=== PATIENT | female | born 1970 | race Caucasian/White ===

== ENCOUNTER 2020-08-30 19:27 | Day surgery (SDC) | payer BC, OTHER ==
[~2020-08-30] VITALS: Ht 162.6 cm; Wt 128.5 kg
[2020-08-30] MEDS ORDERED: morphine INJ 10 MG/ML 1ML (SYR OR VIAL) ONE (19:40)
[2020-08-30] MEDS ORDERED: ETOMIDATE IV SOLN 20 MG/10 ML VIAL ONE (19:41)
[2020-08-30] MEDS ORDERED: morphine INJ 4 MG/ML 1 ML (VIAL/SYRINGE) IVP ONE (19:45)
[2020-08-30] MEDS ORDERED: ONDANSETRON 4 MG/2 ML (SDV) Z0FRAN IVP ONE (19:45)
[2020-08-30] MEDS ORDERED: NS IV 1000 ML 1,000 ML IV SCH (19:45)
--- NOTE | 2020-08-30 20:28 | ED Lower Extremity ---
General Chief Complaint: Conscious Sedation Stated Complaint: L ANKLE PAIN Source: patient Exam Limitations: no limitations History of Present Illness Date Seen by Provider: Aug 30, 2020 Time Seen by Provider: 19:25 Initial Comments Patient is a 50-year-old female who presents by EMS today with a chief complaint of left ankle pain after a fall. Patient states that she was feeding her chickens coming down a ramp from one of her storage shed's and fell on the left leg. Patient states she immediately had pain and heard a cracking sound. She was not able to get herself up to her feet. Patient states that her left hip is a little sore. Patient denies any other complaints of injury. She did not hit her head she did not have a loss of consciousness. No recent illnesses such as fevers, chills, cough, congestion. She does have a history of some hypertension. She takes medication for this. Last meal was at 430 this evening. All other review of systems reviewed and negative except as stated above. Onset: just prior to arrival Severity: severe Pain/Injury Location: left ankle Method of Injury: fell Modifying Factors: Improves With Immobilization; Worse With Movement; Improves With Pain Medication Allergies and Home Medications Allergies Coded Allergies: latex (Verified Allergy, Unknown, 08/30/20) Home Medications Aspirin/Acetaminophen/Caffeine 1 Each Tablet, 2 EACH PO Q6-8HR PRN for Headache, (Reported) Escitalopram Oxalate 10 Mg Tablet, 10 MG PO DAILY, (Reported) Estrogen,Mildred/Me-Testosterone 1 Each Tablet, 1 EA PO DAILY, (Reported) Fexofenadine HCl 180 Mg Tablet, 180 MG PO DAILY PRN for ALLERGY SYMPTOMS, (Reported) Lisinopril/Hydrochlorothiazide 1 Each Tablet, 1 EA PO DAILY, (Reported) Oxycodone HCl/Acetaminophen 1 Each Tablet, 1 TAB PO Q4H PRN for PAIN-MODERATE (5-7) Prescribed by: PETEY ASKEW MD on 09/02/20 0485 Patient Home Medication List Home Medication List Reviewed: Yes Review of Systems Constitutional: see HPI EENTM: no symptoms reported Respiratory: no symptoms reported Cardiovascular: no symptoms reported Gastrointestinal: no symptoms reported Genitourinary: no symptoms reported : No Musculoskeletal: joint pain (Left ankle) Skin: no symptoms reported Psychiatric/Neurological: No Symptoms Reported All Other Systems Reviewed Negative Unless Noted: Yes Physical Exam Vital Signs Vital Signs - First Documented 08/30/20 19:28 Pulse 81 Resp 16 B/P (MAP) 114/76 (89) O2 Delivery Room Air Capillary Refill : Height, Weight, BMI Height: '" Weight: lbs. oz. kg; BMI Method: General Appearance: WD/WN, no apparent distress HEENT: normal ENT inspection (Mallampati 2) Neck: full range of motion Cardiovascular: regular rate, rhythm Respiratory: lungs clear, normal breath sounds, no respiratory distress, no accessory muscle use Gastrointestinal: non tender, soft Hips: left hip non-tender (Slightly tender posteriorly), left hip normal inspection, left hip normal range of motion; bilateral hip no evidence of injury Legs: left leg bone tenderness (Lateral left knee) Knees: bilateral knee non-tender, bilateral knee normal inspection; left knee soft tissue tenderness Ankles: left ankle bone tenderness, left ankle deformity, left ankle limited range of motion, left ankle pain, left ankle swelling Feet: bilateral foot non-tender, bilateral foot normal inspection, bilateral foot normal range of motion Neurologic/Tendon: normal sensation, normal motor functions Neurologic/Psychiatric: no motor/sensory deficits, alert, normal mood/affect, oriented x 3 Skin: normal color, warm/dry Procedures/Interventions Procedure: Conscious sedation for closed reduction of left ankle fracture/dislocation Patient Education: Explained Benefits, Explained Risks, Pt. Ack. Understanding Agreement on procedure with pt: Yes Breath Sounds per Auscultation: Clear Heart Sounds per Auscultation: Regular Airway Exam: Mouth opens >2 fingers, Neck Full Range of Motion, Visulation of Uvula Sedation Adminstration Time: 19:56 Total Time spent in CS 15 minutes Patient did have an episode of vomiting after the etomidate was pushed. Maintained control of the airway. Patient's oxygen saturations never dropped below 96. Re-examination Time: 20:15 Re-examination Patient is awake alert and talking post procedure. Splinting and Joint Reduction : Location: Left ankle fracture/dislocation Pre-Proc Neuro Vasc Exam: normal Post-Proc Neuro Vasc Exam: normal Reduction Attempts: 1 Pre-Procedure NV Exam: Yes post joint reduction film: joint reduced Progress Patient seen and examined, conscious sedation. Patient's left ankle fracture dislocation successfully reduced x1. Patient placed in a posterior short leg splint with a stirrup. Lincoln wrap: Yes Hand-Made Type: orthoglass Splint Application: Short Leg Progress/Results/Core Measures Results/Orders Lab Results Laboratory Tests Test 08/30/20 20:55 Range/Units White Blood Count 13.7 H 4.3-11.0 10^3/uL Red Blood Count 4.52 3.80-5.11 10^6/uL Hemoglobin 13.4 11.5-16.0 g/dL Hematocrit 40 35-52 % Mean Corpuscular Volume 89 80-99 fL Mean Corpuscular Hemoglobin 30 25-34 pg Mean Corpuscular Hemoglobin Concent 34 32-36 g/dL Red Cell Distribution Width 11.9 10.0-14.5 % Platelet Count 146 130-400 10^3/uL Mean Platelet Volume 10.1 9.0-12.2 fL Immature Granulocyte % (Auto) 0 % Neutrophils (%) (Auto) 80 H 42-75 % Lymphocytes (%) (Auto) 12 12-44 % Monocytes (%) (Auto) 3 0-12 % Eosinophils (%) (Auto) 4 0-10 % Basophils (%) (Auto) 0 0-10 % Neutrophils # (Auto) 11.0 H 1.8-7.8 10^3/uL Lymphocytes # (Auto) 1.6 1.0-4.0 10^3/uL Monocytes # (Auto) 0.5 0.0-1.0 10^3/uL Eosinophils # (Auto) 0.5 H 0.0-0.3 10^3/uL Basophils # (Auto) 0.1 0.0-0.1 10^3/uL Immature Granulocyte # (Auto) 0.1 0.0-0.1 10^3/uL Sodium Level 140 135-145 MMOL/L Potassium Level 3.6 3.6-5.0 MMOL/L Chloride Level 104 98-107 MMOL/L Carbon Dioxide Level 21 21-32 MMOL/L Anion Gap 15 H 5-14 MMOL/L Blood Urea Nitrogen 15 7-18 MG/DL Creatinine 0.81 0.60-1.30 MG/DL Estimat Glomerular Filtration Rate > 60 BUN/Creatinine Ratio 19 Glucose Level 135 H 70-105 MG/DL Calcium Level 8.5 8.5-10.1 MG/DL My Orders Orders - JAYASHREE CORTEZ MD Morphine Injection (Morphine Injection (08/30/20 19:45) Ondansetron Injection (Zofran Injectio (08/30/20 19:45) Ns Iv 1000 Ml (Sodium Chloride 0.9%) (08/30/20 19:45) Morphine Injection (Morphine Injection (08/30/20 19:40) Etomidate Injection (Amidate Injection) (08/30/20 19:41) Chest 1 View, Ap/Pa Only (08/30/20 20:11) Tibia/Fibula, Left, 2 Views (08/30/20 20:11) Cbc With Automated Diff (08/30/20 20:36) Basic Metabolic Panel (08/30/20 20:36) Ekg Tracing (08/30/20 20:36) Promethazine Injection (Phenergan Injec (08/30/20 21:30) Medications Given in ED Current Medications Medications Dose Ordered Sig/Patricia Route Start Time Stop Time Status Last Admin Dose Admin Etomidate 20 mg STK-MED ONCE .ROUTE 08/30/20 19:41 08/30/20 19:47 DC 08/30/20 19:56 15 MG Morphine Sulfate 10 mg STK-MED ONCE .ROUTE 08/30/20 19:40 08/30/20 19:45 DC 08/30/20 19:48 4 MG Ondansetron HCl 4 mg ONCE ONCE IVP 08/30/20 19:45 08/30/20 19:47 DC 08/30/20 19:48 4 MG Vital Signs/I&O 08/30/20 08/30/20 19:28 20:15 Pulse 81 Resp 16 B/P (MAP) 114/76 (89) O2 Delivery Room Air Room Air Progress Progress Note : Time: 20:49 Progress Note 50-year-old female presents to the emergency department today with a chief complaint of left ankle pain. Patient had a mechanical fall down a slippery ice ramp. Sustained a trimalleolar fracture dislocation to the left ankle. Evaluation today includes a physical exam, x-rays of the left ankle and tib-fib. Patient underwent conscious sedation with 20 mg of etomidate for closed reduction of the fracture dislocation. Patient did have an episode of vomiting while under sedation. Chest x-ray was obtained. At this time the chest x-ray is clear. Patient's oxygen saturations never dropped below 96. Low suspicion for aspiration at this time. Post sedation and reduction the patient is awake alert oriented and only has complaints of mild pain and nausea. Case is discussed with Dr. Askew who is on-call for orthopedic surgery. Would like an EKG and basic laboratory studies. Patient to be n.p.o. after midnight this evening. He states that he will repair the ankle tomorrow mid to late morning. All of this is communicated to the patient and her spouse. They verbalized understanding. All questions are sought and answered. Initial ECG Impression Date: Aug 30, 2020 Initial ECG Impression Time: 21:10 Initial ECG Rate: 64 Initial ECG Rhythm: Normal Sinus Initial ECG Intervals: WI Initial ECG Impression: 1st Degree AV Block Comment RBBB Departure Communication (Admissions) Time/Spoke to Admitting Phy: 20:[address] Askew accepts admission for observation status for operative repair of trimalleolar left ankle fracture in the a.m. Impression Primary Impression: Closed trimalleolar fracture of left ankle Qualified Codes: S82.852A - Displaced trimalleolar fracture of left lower leg, initial encounter for closed fracture Disposition: ADMITTED INPATIENT Condition: Stable Admissions Decision to Admit Reason: Admit from ER (Trauma) Decision to Admit/Date: Aug 30, 2020 Time/Decision to Admit Time: 20:48 Departure-Patient Inst. Referrals: UNKNOWN (PCP/Family) Primary Care Physician Patient Instructions: Moderate Sedation in Adults (DC), Moderate Sedation in Children (DC) Scripts Oxycodone HCl/Acetaminophen (Percocet 5-325 mg Tablet) 1 Each Tablet 1 TAB PO Q4H PRN for PAIN-MODERATE (5-7) for 40 Days, TAB Prov: PETEY ASKEW MD 09/02/20 JAYASHREE CORTEZ MD Aug 30, 2020 20:28
--- NOTE | 2020-08-30 20:48 | Diagnostic Imaging Report ---
Clinical Indications: Patient with left ankle fracture. Patient slipped and fell. Exam: Portable chest x-ray upright view. Comparisons: None. Findings: Lungs/pleura: Lungs are clear. There is no pneumothorax. There is no pleural effusion. Mediastinum: Unremarkable. Pulmonary vasculature: Unremarkable. Heart: Unremarkable. Bones/extrathoracic soft tissue: There are mildly hypertrophic spurs involving the thoracic spine. Impression: There is no radiographic evidence of acute cardiopulmonary process. Dictated by: Dictated on workstation # [id number]
--- NOTE | 2020-08-30 20:52 | Diagnostic Imaging Report ---
Clinical Indications: Patient slipped and fell. Obvious deformity of the left lower extremity. Exams: 1: X-ray left ankle, 3 views. 2: X-ray left tibia and fibula, 2 views. COMPARISON: None. FINDINGS: There is a comminuted fracture involving the distal fibula with the comminuted fracture component displaced posteriorly by roughly 4 mm. There is a mildly distracted fracture of the medial malleolus of grossly 3 mm and the fracture is slightly laterally displaced. There is also a smaller fracture fragment involving the inferior tip of the medial malleolus. There is also widening of the lateral ankle mortise and slight widening of the syndesmotic joint. There is a mildly distracted fracture of the posterior malleolus which is slightly angulated. There is no other fracture seen. There is soft tissue swelling about the right ankle. The proximal tibia and fibula show no fracture. Left knee shows no significant abnormalities as visualized. Splint material is seen overlying the right lower extremity. IMPRESSION: 1: There is a distracted trimalleolar fracture dislocation involving the left ankle, which is described above. There is slight lateral subluxation of the talus in relation to the tibia. Dictated by: Dictated on workstation # [id number]
[2020-08-30 21:01] LABS: HEMATOCRIT 40 % (35-52); HEMOGLOBIN 13.4 g/dL (11.5-16.0); MEAN CORPUSCULAR HGB CONC 34 g/dL (32-36); MEAN PLATELET VOLUME 10.1 fL (9.0-12.2)
[2020-08-30 21:03] LABS: BASOPHILS # (AUTO) 0.1 10^3/uL (0.0-0.1); BASOPHILS % (AUTO) 0 % (0-10); EOSINOPHILS # (AUTO) 0.5 10^3/uL (0.0-0.3); EOSINOPHILS % (AUTO) 4 % (0-10); LYMPHOCYTES # (AUTO) 1.6 10^3/uL (1.0-4.0); LYMPHOCYTES % (AUTO) 12 % (12-44); MEAN CORPUSCULAR HEMOGLOBIN 30 pg (25-34); MEAN CORPUSCULAR VOLUME 89 fL (80-99); MONOCYTES # (AUTO) 0.5 10^3/uL (0.0-1.0); MONOCYTES % (AUTO) 3 % (0-12); NEUTROPHILS % (AUTO) 80 % (42-75); PLATELET COUNT 146 10^3/uL (130-400); WHITE BLOOD COUNT 13.7 10^3/uL (4.3-11.0)
[2020-08-30 21:11] LABS: CHLORIDE 104 MMOL/L (98-107); POTASSIUM 3.6 MMOL/L (3.6-5.0); SODIUM 140 MMOL/L (135-145)
[2020-08-30 21:13] LABS: CALCIUM 8.5 MG/DL (8.5-10.1); GLUCOSE 135 MG/DL (70-105)
[2020-08-30 21:15] LABS: CARBON DIOXIDE 21 MMOL/L (21-32)
[2020-08-30 21:17] LABS: CREATININE SERUM 0.81 MG/DL (0.60-1.30); GFR ESTIMATED > 60
[2020-08-30 21:18] LABS: BUN/CREATININE RATIO 19
[2020-08-30] MEDS ORDERED: PROMETHAZINE INJ 25 MG/ML (PHENERGAN) AMP IVP ONE (21:30)
[2020-08-30] MEDS ORDERED: NS (IVPB) 250 ML IV ONE (21:30)
[2020-08-30] MEDS ORDERED: NS 100 ML (IVPB) BAG IV ONE (21:30)
[2020-08-30 22:08] VITALS: BP 135/78
[2020-08-30] MEDS ORDERED: ONDANSETRON 4 MG/2 ML (SDV) Z0FRAN IVP PRN (22:15)
[2020-08-30] MEDS: NS IV 1000 ML 1,000 ML IV SCH (23:04)
[2020-08-30] MEDS: morphine INJ 4 MG/ML 1 ML (VIAL/SYRINGE) IVP PRN (23:04)
[2020-08-31] VITALS (16 sets, daily range): BP systolic 105–153; BP diastolic 54–95
[2020-08-31] MEDS: morphine INJ 4 MG/ML 1 ML (VIAL/SYRINGE) IVP PRN ×3 (02:47→08:43)
[2020-08-31] MEDS: NS IV 1000 ML 1,000 ML IV SCH ×3 (07:04→21:09)
--- NOTE | 2020-08-31 09:18 | History & Physical Orthopedic ---
History and Physical Subjective Date of Exam 08/31/20 Chief Complaint Fracture left ankle HPI/Events since last exam Mrs. Collins is a 50-year-old white female who fell last evening landing on her lower back and twisting her left ankle. She is brought the emergency room were x-rays of the left ankle showed a trimalleolar fracture dislocation. The ankle was reduced and splinted in the patient was admitted for surgical treatment. Patient states she's had no previous fractures. She's also complaining of some posterior pelvic and lower back pain. She denies injuries to the upper extremities or the right lower extremity. Medical, Surgical History Patient has a history of hypertension being treated by Dr. Roche in [place] with lisinopril 10 mg a day. Previous surgery included total hysterectomy and cholecystectomy Illnesseshypertension Allergieslatex Social History Reviewed and no additions or changes Family History Reviewed and no additions or changes Review of Systems Reviewed and no additions or changes. Please see above Allergies: Coded Allergies: latex (Verified Allergy, Unknown, 08/30/20) Home Medication List Reviewed: Yes Objective Exam Constitutional: [The patient is in mild distress but she is alert and oriented] HEENT: Within normal limits [] Neck: No pain with palpation or range of motion [] Cardiovascular: [Regular rhythm without murmurs] Respiratory: [Clear to auscultation] Gastrointestinal: [] No abdominal pain Genitourinary: [] Skin: [] No changes Back/Spine: [Pain posterior pelvis over the SI joints and lower back with palpation. The patient is able to roll up on her side with just some mild pain.] Extremities: [Good range of motion of both hips without pain. No pain with palpation of either knee with good motion. Good range of motion right ankle without pain. She has normal sensation of foot and toes with good cap refill and good dorsalis pedis pulses which are symmetrical. Her right ankle splinted. No pain left hip or left knee.] Neurologic: [Grossly intact] Psychiatric: [] Hematologic/lymphatic/immunologic: [] Vital Signs Vital Signs Date Time Temp Pulse Resp B/P (MAP) Pulse Ox O2 Delivery O2 Flow Rate FiO2 08/31/20 08:16 35.6 75 18 142/63 (89) 97 Room Air 08/31/20 04:30 36.6 65 18 133/66 (88) 98 Room Air 08/31/20 00:32 36.1 66 18 105/54 (71) 92 Room Air 08/30/20 22:20 Room Air 08/30/20 22:08 36.0 77 20 135/78 (97) 98 Room Air 08/30/20 21:51 61 16 94 Room Air 08/30/20 20:15 Room Air 08/30/20 19:28 81 16 114/76 (89) Room Air I & O 08/31/20 07:00 Intake Total 1000 ml Balance 1000 ml Lab Results Laboratory Tests 08/30/20 20:55: White Blood Count 13.7H, Red Blood Count 4.52, Hemoglobin 13.4, Hematocrit 40, Mean Corpuscular Volume 89, Mean Corpuscular Hemoglobin 30, Mean Corpuscular Hemoglobin Concent 34, Red Cell Distribution Width 11.9, Platelet Count 146, Mean Platelet Volume 10.1, Immature Granulocyte % (Auto) 0, Neutrophils (%) (Auto) 80H, Lymphocytes (%) (Auto) 12, Monocytes (%) (Auto) 3, Eosinophils (%) (Auto) 4, Basophils (%) (Auto) 0, Neutrophils # (Auto) 11.0H, Lymphocytes # (Auto) 1.6, Monocytes # (Auto) 0.5, Eosinophils # (Auto) 0.5H, Basophils # (Auto) 0.1, Immature Granulocyte # (Auto) 0.1, Sodium Level 140, Potassium Level 3.6, Chloride Level 104, Carbon Dioxide Level 21, Anion Gap 15H, Blood Urea Nitrogen 15, Creatinine 0.81, Estimat Glomerular Filtration Rate > 60, BUN/Creatinine Ratio 19, Glucose Level 135H, Calcium Level 8.5 08/31/20 02:49: Imaging X-rays of the left ankle post reduction and splinting shows a mildly displaced m edial malleolar fracture. There is also a comminuted distal fibula fracture with widening of the syndesmosis and small posterior malleolar fracture that's minimally displaced Assessment and Plan Assessment Fracture dislocation left ankle from fall Lower back and posterior pelvic pain Problem List Fracture dislocation left ankleclosed, trimalleolar Low back pain Plan Treatment options were discussed with the patient. We'll proceed with x-rays of the pelvis and lower back. Recommend surgical treatment for the left ankle. Nonsurgical treatment would result in poor outcome. The patient understands procedure risks complications and would like to proceed. Ruddy she has a syndesmosis injury as well as a fracture which were require a longer period of time for healing. She has been nothing by mouth. She scheduled for surgery in approximately 1030 this morning Final Diagonsis Trimalleolar fracture dislocation left ankle Level of the visit: Level 3 PETEY VEGA MD Aug 31, 2020 09:18
[2020-08-31] MEDS ORDERED: MIDAZOLAM 2 MG/2 ML (VERSED) VIAL ONE (09:25)
[2020-08-31] MEDS ORDERED: fentaNYL INJECTION 100 MCG/2 ML AMP ONE (09:25)
[2020-08-31] MEDS ORDERED: proPOfol 200 MG/20 ML (DIPRIVAN) VIAL IV ONE (09:26)
[2020-08-31] MEDS ORDERED: LIDOCAINE PF 2% 5 ML (XYLOCAINE) VIAL ONE (09:26)
[2020-08-31] MEDS ORDERED: ONDANSETRON 4 MG/2 ML (SDV) Z0FRAN ONE (09:26)
[2020-08-31] MEDS ORDERED: SEVOFLURANE (ULTANE) 15 ML INHAL SOLN ONE ×8 (09:26→13:41)
[2020-08-31] MEDS ORDERED: NEO/POLY/BAC (NEOSPORIN) OINT 15 GM TUBE ONE (09:55)
[2020-08-31] MEDS: LACTATED RINGERS 1,000 ML IV PRN ×2 (10:29→12:58)
[2020-08-31] MEDS ORDERED: ceFAZolin INJECTION 2,000 MG ONE (10:43)
[2020-08-31] MEDS ORDERED: HYDROmorphone 2 MG/ML VIAL (DILAUDID) ONE (11:00)
--- NOTE | 2020-08-31 11:14 | Diagnostic Imaging Report ---
EXAM: Pelvic radiograph. Exam date: 08/31/2020 COMPARISON: None. HISTORY: Pelvic pain after fall. TECHNIQUE: Single view of the pelvis. FINDINGS: No acute fracture, dislocation, or destructive osseous process. Degenerative changes of both hips. Moderate stool burden is seen in the pelvis. No radiopaque foreign body. IMPRESSION: Degenerative changes of the hips without acute osseous abnormality. Dictated by: Dictated on workstation # [id number]
[2020-08-31] MEDS ORDERED: PHENYLEPHRINE 100 MCG/ML 10 ML (ANESTHESIA) SYR ONE (11:22)
--- NOTE | 2020-08-31 11:24 | Diagnostic Imaging Report ---
EXAM: Lumbar spine radiographs. EXAM DATE: 08/31/2020. COMPARISON: None. HISTORY: Fall onto low back with pain. TECHNIQUE: Thre views of the lumbar spine and sacrum. FINDINGS: There is mild multilevel spondylosis of the lumbar spine. Vertebral body heights and alignment are maintained. Mild facet hypertrophy in the lower lumbar spine. Soft tissues are unremarkable. No acute fracture, dislocation, or destructive osseous process. IMPRESSION: Degenerative changes of the lumbar spine without acute osseous abnormality. Dictated by: Dictated on workstation # [id number]
[2020-08-31] MEDS ORDERED: LIDOCAINE/EPI 1%-1:100,000 (XYLOCAINE) 50 ML ONE (12:50)
--- NOTE | 2020-08-31 12:57 | Diagnostic Imaging Report ---
INDICATION: Surgery. FINDINGS: 43 seconds of fluoroscopy time was utilized during ankle surgery. IMPRESSION: Fluoroscopy utilized during orthopedic surgery. Dictated by: Dictated on workstation # [id number]
[2020-08-31] MEDS ORDERED: HYDROmorphone 2 MG/ML VIAL (DILAUDID) IV ONE (13:30)
[2020-08-31] MEDS ORDERED: ONDANSETRON 4 MG/2 ML (SDV) Z0FRAN IVP PRN (13:30)
[2020-08-31] MEDS ORDERED: fentaNYL INJECTION 100 MCG/2 ML AMP IVP PRN (13:45)
--- NOTE | 2020-08-31 14:02 | Operative Report - Ortho ---
Operative Report Surgeon (s)/Quill Layer (s) Surgeon PETEY VEGA MD Quill Layer n/a Pre-Operative Diagnosis closed trimalleolar fracture dislocation left ankle Post-Operative Diagnosis same Operative Report Date of Procedure: Aug 31, 2020 Name of Procedure Performed: Open reduction internal fixation trimalleolar fracture left ankle [id number] minutes at 300 mmHg Description & Findings The patient was seen in the preoperative area and treatment options were discussed. She would like proceed with surgical treatment. She understands the procedure risks and complications. She was taken to the operating room and was placed on the OR table. After administration of general anesthesia her splint was removed. No skin changes were noted. There was some mild bruising mediolaterally as well as some mild swelling. No wounds were noted. Tourniquet was placed on the left thigh. Patient was given 2 g Ancef IV prior to her surgery. The left foot and ankle were then prepped and draped in usual sterile manner. The leg was exsanguinated with an Esmarch and the tourniquet was elevated to 300 mmHg. A longitudinal incision was made slightly posterior lateral left distal fibula. This was taken down through subjacent tissue. Small bleeders are cauterized. Soft tissue was elevated off the distal fibula and the fascia was split and taken down to the proximal aspect of the fracture. She had a long posterior butterfly fragment as well as an oblique fracture just above the joint line. The fracture was irrigated and then reduced and held with reduction clamps. A 12 hole locking distal fibular plate was then placed on the distal fibula. Locking screws are placed into the distal fragment. Then 2 locking screws were then placed proximal to the butterfly fragment. The butterfly fragment did have some comminution but was reduced and held with 2 lag screws. Additional locking screws were placed distally as well as proximal to the fracture. Images used to visualize the fracture as well as plate position and screws. After fixation of the fibula fracture 2 syndesmotic screws were placed through the slot holes above the ankle joint holding the fibula and syndesmosis reduced as the 2 syndesmotic screws were inserted 4 cortices. This held the syndesmosis reduced. It also reduced the medial malleolus. At this point incision was made over the medial malleolus. This was taken down through subjacent tissue. The fracture was irrigated and reduced and held with a reduct ion clamp. 2 guidewires were then placed through the medial malleolus across fracture site and the distal tibia. This was again viewed on image. These were then overdrilled and 230 mm 4.0 cannulated screws partially threaded were inserted over the guidewires fixing the medial malleolus. Images used to visualize the reduction and position of the screws and excellent alignment was noted. The mortise was symmetrical and well maintained. Again the syndesmosis was reduced and the fibula was out to length and reduced except for the butterfly fragment was slightly displaced posteriorly. At this point the tourniquet was deflated after 91 minutes. Small bleeders cauterized. Both wounds are irrigated with normal saline. The lateral wound was closed in layers with 0 Vicryl, 2-0 Vicryl and skin clips. The medial wound was closed with 2-0 Vicryl and skin clips. Wounds were injected with a combination 1 percent Xylocaine with epinephrine and 0.25 percent Marcaine plain. Wounds were then dressed with antibiotic ointment and Adaptic and 4 x 4's. These are wrapped with cast padding/NIC L and then a posterior and sugar tong splint was applied which was wrapped with an Lincoln wrap. After the tourniquet was deflated patient had immediate blood flow back to the foot and ankle with good cap refill and good pulses. Patient was then transferred to recovery room in good condition, she tolerated procedure well. We will keep her overnight for pain management and IV antibiotics and physical therapy in the morning. If she is doing well she could be discharged tomorrow morning. n/a Anesthesia Type Gen. Estimated Blood Loss 40 mL's Packing none. Specimen(s) collected/removed none PETEY VEGA MD Aug 31, 2020 14:02
[2020-08-31] MEDS: oxyCODONE/APAP 5/325MG (PERCOCET 5) TABLET PO PRN ×3 (14:43→23:40)
[2020-08-31] MEDS: fentaNYL INJECTION 100 MCG/2 ML AMP IVP PRN ×4 (14:43→22:55)
[2020-08-31] MEDS ORDERED: MULT-1136 PO (15:43)
[2020-08-31] MEDS ORDERED: ROPI1TAB PO (15:43)
[2020-08-31] MEDS ORDERED: FEXO180T84 PO (15:43)
[2020-08-31] MEDS ORDERED: LISI1TAB29 PO (15:43)
[2020-08-31] MEDS ORDERED: ESCI-2 PO (15:43)
[2020-08-31] MEDS ORDERED: LATA2.5D19 OU (15:43)
[2020-08-31] MEDS ORDERED: ASPI-789 PO (15:43)
[2020-08-31] MEDS ORDERED: SYNTEST.HS PO (15:43)
[2020-08-31] MEDS: ceFAZolin 2 GM IV Premixed 50 ML IV SCH (17:54)
[2020-08-31] MEDS: LATANOPROST 0.005% (XALATAN) OPHTH SOLN 2.5 ML OU SCH (19:43)
[2020-09-01] VITALS: BP 137/65
[2020-09-01] MEDS: fentaNYL INJECTION 100 MCG/2 ML AMP IVP PRN ×7 (02:05→20:57)
[2020-09-01] MEDS: ceFAZolin 2 GM IV Premixed 50 ML IV SCH (02:11)
[2020-09-01] MEDS: oxyCODONE/APAP 5/325MG (PERCOCET 5) TABLET PO PRN ×4 (03:55→17:50)
[2020-09-01 04:00] VITALS: BP 160/74
[2020-09-01 07:45] VITALS: BP 144/71
[2020-09-01] MEDS: NS IV 1000 ML 1,000 ML IV SCH ×3 (07:54→23:00)
--- NOTE | 2020-09-01 09:12 | Progress Note - Ortho ---
Progress Note Subjective Date of Exam 09/01/20 Chief Complaint POD#! ORIF left ankle trimalleolar fracture dislocation HPI/Events since last exam Mrs. Subramanian is 1 day postop open reduction internal fixation left ankle. She had quite a bit of pain through the evening a little bit less this morning. She states the burning and there is pressure. She states she has normal sensation to her toes. She has been taking both oral and IV pain medication. She has been up to the bedside commode but not ambulated yet Review of Systems Reviewed and no additions or changes Allergies: Coded Allergies: latex (Verified Allergy, Unknown, 08/30/20) Home Meds Reported Medications Fexofenadine HCl (Stacey Allergy) 180 Mg Tablet, 180 MG PO DAILY PRN for ALLERGY SYMPTOMS, TAB 08/31/20 Aspirin/Acetaminophen/Caffeine (Excedrin Migraine Caplet) 1 Each Tablet, 2 EACH PO Q6-8HR PRN for Headache, TAB 08/31/20 Multivitamin (Multivitamin) 1 Each Tablet, 1 EACH PO DAILY, TAB 08/31/20 Ropinirole HCl (Ropinirole HCl) 1 Mg Tablet, 1 EA PO HS, TAB 08/31/20 Escitalopram Oxalate (Escitalopram Oxalate) 10 Mg Tablet, 10 MG PO DAILY, TAB 08/31/20 Lisinopril/Hydrochlorothiazide (Lisinopril-Hctz 10-12.5 mg Tab) 1 Each Tablet, 1 EA PO DAILY, TAB 08/31/20 Latanoprost (Xalatan) 2.5 Ml Drops, 1 DROP OU HS, DROPS 08/31/20 Estrogen,Mildred/Me-Testosterone (Estrogen-Methyltestos H.s. Tab) 1 Each Tablet, 1 EA PO DAILY, TAB 08/31/20 Objective Exam Constitutional: [] HEENT: [] Neck: [] Cardiovascular: [] Respiratory: [] Gastrointestinal: [] Genitourinary: [] Skin: [] Back/Spine: [] Extremities: [She move her toes without pain. There toes show good capillary refill. They're pink and warm. She has normal sensation. Good dorsalis pedis pulse. I went ahead and split her Lincoln wrap and WEbril and opened up her splint a little bit] and she felt less pressure and thought it did help. I then rewrapped the splint with another Lincoln wrap and in doing this she lifted her leg up without any problems whatsoever. Neurologic: [] Psychiatric: [] Hematologic/lymphatic/immunologic: [] Vital Signs Vital Signs Date Time Temp Pulse Resp B/P (MAP) Pulse Ox O2 Delivery O2 Flow Rate FiO2 09/01/20 07:45 98 Room Air 0.00 09/01/20 07:45 36.8 88 18 144/71 (95) 98 Room Air 0.00 09/01/20 04:00 37.8 92 18 160/74 (102) 98 Nasal Cannula 2.00 09/01/20 00:00 37.2 81 18 137/65 (89) 98 Nasal Cannula 2.00 08/31/20 20:00 37.1 86 18 132/64 (86) 98 Nasal Cannula 2.00 08/31/20 19:56 Room Air 08/31/20 18:34 Room Air 08/31/20 16:00 36.6 84 18 150/74 (99) 96 Nasal Cannula 2.50 08/31/20 14:52 36.6 72 16 148/75 (99) 100 Nasal Cannula 3.00 08/31/20 14:30 36.4 18 116/78 (91) 97 Nasal Cannula 2 08/31/20 14:30 Nasal Cannula 2 08/31/20 14:20 18 142/94 (110) 96 Nasal Cannula 2 08/31/20 14:14 Nasal Cannula 2 08/31/20 14:10 18 112/74 (87) 98 Nasal Cannula 2 08/31/20 14:04 Room Air 08/31/20 14:00 18 144/70 (94) 98 OxyMask 3 08/31/20 13:59 OxyMask 3 08/31/20 13:50 18 139/95 (110) 99 OxyMask 6 08/31/20 13:44 OxyMask 6 08/31/20 13:40 18 149/92 (111) 100 OxyMask 6 08/31/20 13:38 OxyMask 6 08/31/20 13:30 18 153/94 (113) 100 OxyMask 6 08/31/20 13:30 OxyMask 6 08/31/20 13:20 8 111/81 (91) 100 OxyMask 6 08/31/20 13:15 OxyMask 6 08/31/20 13:15 36.3 18 111/70 (84) 98 OxyMask 6 I & O 09/01/20 06:59 Intake Total 2910 ml Balance 2910 ml Lab Results Microbiology 08/31/20 MRSA Screen - Final, Complete MRSA not isolated Assessment and Plan Assessment Increased pain postop day number 1, expected with this type of injury and surgery Problem List Unchanged Plan Physical therapy, walker ambulation nonweightbearing on the left. Continue ice and elevation. We'll see how she does and if she is comfortable later on today she can go home, if not we'll keep her another evening for pain management. Final Diagonsis Trimalleolar fracture dislocation left ankle status post open reduction internal fixation Level of the visit: Level 3 PETEY VEGA MD Sep 01, 2020 09:12
--- NOTE | 2020-09-01 09:39 | Anesthesia-General Post-Op ---
General Patient Condition Mental Status/LOC: Same as Preop Cardiovascular: Satisfactory Nausea/Vomiting: Absent Respiratory: Satisfactory Pain: Controlled Complications: Absent Post Op Complications Complications None Follow Up Care/Instructions Patient Instructions None needed. Anesthesia/Patient Condition Patient Condition Patient is doing well, no complaints, stable vital signs, no apparent adverse anesthesia problems. No complications reported per nursing. ROSELIA GARCIA CRNA Sep 01, 2020 09:39
--- NOTE | 2020-09-01 10:28 | Physical Therapy Evaluation ---
PT Evaluation-General Medical Diagnosis Admission Date Aug 30, 2020 at 20:53 Medical Diagnosis: Fracture dislocation left ankleclosed, trimalleolar Onset Date: Aug 30, 2020 Therapy Diagnosis Therapy Diagnosis: impaired mobility, endurance Precautions Precautions/Isolations: Fall Prevention, Standard Precautions Weight Bear Status Right Lower Extremity: Right Full Weight Bearing Left Lower Extremity: Left Non Weight Bearing Referral Physician: Jamilah Reason for Referral: Evaluation/Treatment Medical History Reviewed History: Yes Social History Home: Single Level Current Living Status: Spouse Entry Into Home: Stairs Without Railing PT Steps Into Home: 3 Prior Prior Level of Function SCALE: Activities may be completed with or without assistive devices. 6-Johiiyhela-ekcgysa completes the activity by him/herself with no assistance from a helper. 5-Set-up or Clean-up Assistance-helper sets up or cleans up; patient completes activity. [place] assists only prior to or following the activity. 4-Supervision or Touching Assistance-helper provides verbal cues and/or touching/steadying and/or contact guard assistance as patient completes activity. Assistance may be provided throughout the activity or intermittently. 3-Partial/Moderate Assistance-helper does LESS THAN HALF the effort. [place] lifts, holds or supports trunk or limbs, but provides less than half the effort. 2-Substantial/Maximal Assistance-helper does MORE THAN HALF the effort. [place] lifts or holds trunk or limbs and provides more than half the effort. 3-Vyknulijs-xzpoza does ALL the effort. Patient does none of the effort to complete the activity. Or, the assistance of 2 or more helpers is required for the patient to complete the activity. If activity was not attempted, code reason: 7-Patient Refused. 9-Not Applicable-not attempted and the patient did not perform the activity before the current illness, exacerbation or injury. 10-Not Attempted due to Environmental Limitations-(lack of equipment, weather restraints, etc.). 88-Not Attempted due to Medical Conditions or Safety Concerns. Bed Mobility: 6 Transfers (B,C,W/C): 6 Gait: 6 Stairs: 6 Indoor Mobility (Ambulation): Independent Stairs: Independent PT Evaluation-Current Subjective Patient in bed pre tx, agrees to PT, has 8/10 pain in left ankle. Pt/Family Goals to be independent at home Objective Patient Orientation: Person, Place, Situation Attachments: IV ROM/Strength ROM Lower Extremities WNL, left ankle not tested Strength Lower Extremities NT Sensory Hearing: Functional Sensation Right Lower Extremit: Intact Sensation Left Lower Extremity: Intact Transfers Roll Left to Right (QC): 6 Sit to Lying (QC): 6 Lying to Sitting/Side of Bed(Q: 6 Sit to Stand (QC): 4 Chair/Qjy-yn-Kwaof Xfer(QC): 4 Gait Does the Patient Walk?: Yes Mode of Locomotion: Walk Anticipated Mode of Locomotion: Walk Distance: 6' Gait Assistive Device: FWW Comments/Gait Description ambulated forward 3' and backward 3', patient is compliant with her NWB on left side Balance Sitting Static: Normal Sitting Dynamic: Normal Standing Static: Good Standing Dynamic: Good Treatment LLE supine exercises x10 (QS, HS) Assessment/Needs Patient has impaired mobility, strength, endurance, she is compliant with her NWB on the left side, very painful left ankle with movement. Patient will most likely need a WC to go home with and assistance from a couple of people to get up the stairs into her home. Rehab Potential: [facility] Sales Goals [facility] Goals [facility] Sales Goals Time Frame: Sep 08, 2020 Roll Left & Right (QC): 6 Sit to Lying (QC): 6 Lying-Sitting on Side/Bed(QC): 6 Sit to Stand (QC): 6 Chair/Vtd-ay-Lepry Xfer(QC): 6 Walk 10 feet (QC): 6 Walk 50ft with 2 Turns (QC): 6 PT Plan Problem List Problem List: Activity Tolerance, Functional Strength, Safety, Balance, Gait, Transfer, ROM Treatment/Plan Treatment Plan: Continue Plan of Care Treatment Plan: Education, Functional Activity Tyrel, Functional Strength, Gait, Safety, Therapeutic Exercise, Transfers Treatment Duration: Sep 08, 2020 Frequency: 11 times per week Estimated Hrs Per Day: .25 hour per day Patient and/or Family Agrees t: Yes Safety Risks/Education Patient Education: Gait Training, Transfer Techniques, Correct Positioning, Safety Issues Teaching Recipient: Patient Teaching Methods: Demonstration, Discussion Response to Teaching: Reinforcement Needed Discharge Recommendations Plan Patient will perform bed mobility and transfer training, balance and endurance training, functional strengthening, stair training, gait training, and education, to improve functional mobility and independence at home. Therapy Discharge Recommendati: Home & Family Time/GCodes Time In: 1011 Time Out: 1021 Total Billed Treatment Time: 10 Total Billed Treatment 1 visit EVL 10' BOSTON ABEBE PT Sep 01, 2020 10:28
[2020-09-01] MEDS: ASPIRIN 325 MG (5 GR) TABLET PO SCH (10:50)
[2020-09-01 12:00] VITALS: BP 138/64
--- NOTE | 2020-09-01 13:57 | Physical Therapy Daily Note ---
PT Daily Note-Current Subjective Patient in bed pre tx, agrees reluctantly to PT, has 10/10 pain in left foot, nurse in room and gives her pain meds. Appearance Patient in bed post tx with nurse call, phone, tray, left leg elevated, all needs met. Mental Status Patient Orientation: Person, Place, Situation Attachments: IV Transfers SCALE: Activities may be completed with or without assistive devices. 4-Wapchiftsr-txrpvng completes the activity by him/herself with no assistance from a helper. 5-Set-up or Clean-up Assistance-helper sets up or cleans up; patient completes activity. [place] assists only prior to or following the activity. 4-Supervision or Touching Assistance-helper provides verbal cues and/or touching/steadying and/or contact guard assistance as patient completes activity. Assistance may be provided throughout the activity or intermittently. 3-Partial/Moderate Assistance-helper does LESS THAN HALF the effort. [place] lifts, holds or supports trunk or limbs, but provides less than half the effort. 2-Substantial/Maximal Assistance-helper does MORE THAN HALF the effort. [place] lifts or holds trunk or limbs and provides more than half the effort. 0-Ddglsukpz-nhrgol does ALL the effort. Patient does none of the effort to com plete the activity. Or, the assistance of 2 or more helpers is required for the patient to complete the activity. If activity was not attempted, code reason: 7-Patient Refused. 9-Not Applicable-not attempted and the patient did not perform the activity before the current illness, exacerbation or injury. 10-Not Attempted due to Environmental Limitations-(lack of equipment, weather restraints, etc.). 88-Not Attempted due to Medical Conditions or Safety Concerns. Roll Left & Right (QC): 6 Sit to Lying (QC): 6 Lying to Sitting/Side of Bed(Q: 6 Sit to Stand (QC): 4 Chair/Apm-iw-Pghhp Xfer(QC): 4 Weight Bearing Right Lower Extremity: Right Full Weight Bearing Left Lower Extremity: Left Non Weight Bearing Gait Training Distance: 6' Gait Persons Needed: 1 Gait Assistive Device: FWW very antalgic, compliant with NWB on left leg Treatments transfers, ambulation, patient not willing to perform further exercises due to pain Assessment Current Status: Poor Progress severe pain PT Long-Term Goals Long-Term Goals PT Long-Term Goals Time Frame: Sep 08, 2020 Roll Left & Right (QC): 6 Sit to Lying (QC): 6 Lying-Sitting on Side/Bed(QC): 6 Sit to Stand (QC): 6 Chair/Frr-ee-Tzgex Xfer(QC): 6 Walk 10 feet (QC): 6 Walk 50ft with 2 Turns (QC): 6 PT Plan Problem List Problem List: Activity Tolerance, Functional Strength, Safety, Balance, Gait, Transfer, ROM Treatment/Plan Treatment Plan: Continue Plan of Care Treatment Plan: Education, Functional Activity Tyrel, Functional Strength, Gait, Safety, Therapeutic Exercise, Transfers Treatment Duration: Sep 08, 2020 Frequency: 11 times per week Estimated Hrs Per Day: .25 hour per day Patient and/or Family Agrees t: Yes Safety Risks/Education Patient Education: Gait Training, Transfer Techniques, Correct Positioning, Safety Issues Teaching Recipient: Patient Teaching Methods: Demonstration, Discussion Response to Teaching: Reinforcement Needed Time/GCodes Time In: 1334 Time Out: 1342 Total Billed Treatment Time: 8 Total Billed Treatment 1 visit GT 8' BOSTON ABEBE PT Sep 01, 2020 13:57
[2020-09-01 16:00] VITALS: BP 157/73
[2020-09-01 20:00] VITALS: BP 148/67
[2020-09-02] VITALS: BP 131/62
[2020-09-02] MEDS: oxyCODONE/APAP 5/325MG (PERCOCET 5) TABLET PO PRN ×3 (03:26→11:38)
[2020-09-02] MEDS: fentaNYL INJECTION 100 MCG/2 ML AMP IVP PRN ×2 (03:28→07:53)
[2020-09-02] MEDS: LATANOPROST 0.005% (XALATAN) OPHTH SOLN 2.5 ML OU SCH (03:30)
[2020-09-02 03:34] VITALS: BP 132/67
[2020-09-02] MEDS: NS IV 1000 ML 1,000 ML IV SCH (07:00)
[2020-09-02 07:30] VITALS: BP 134/65
[2020-09-02] MEDS: ASPIRIN 325 MG (5 GR) TABLET PO SCH (08:17)
[2020-09-02] MEDS ORDERED: OXYC1TAB87 PO (09:15)
--- NOTE | 2020-09-02 09:20 | Discharge Summary ---
Discharge Summary Hospital Course Hospital Course Date of Admission: Aug 30, 2020 at 20:53 Admission Diagnosis : Family Physician/Provider: Unknown Date of Discharge: 09/02/20 Discharge Diagnosis: [ ] Hospital Course:Mrs Subramanian was seen in the ER on 08/30 after falling at home. X-rays did show a fractured dislocation of her left ankle trimalleolar closed. She was reduced and splinted by Dr. Ireland. She was admitted for surgical treatment. Treatment options were discussed with the patient and she wanted to proceed with surgical treatment. She was taken to the operating room on 08/31 and underwent an open reduction internal fixation of her left ankle fracture. Both the medial malleolus and the distal fibula were fixed with screws medially and plate and screws laterally. Also the syndesmosis was disrupted and this was fixed with 2 syndesmotic screws through the plate. The posterior malleolar fracture required no fixation of his a small fragment and reduced with the above. She tolerated procedure well. She was splinted after the procedure Postop she did have quite a bit of pain that improved with adjustment of the splint and oral and IV pain medication. She was started on physical therapy walker ambulation nonweightbearing on the left. They have discharged on 218 she was ambulating with walker without any problems but still had some pain. She'll be discharged and follow-up in the office on 09/06. She was told to continue with aspirin 325 mg once a day with food for DVT prophylaxis. Also Percocet 5/325 number 40 was prescribed to take 1 every 4 hours when necessary pain. She can also supplement this with ibuprofen 6-800 mg 3 times a day. Continue ice and elevation. Call if she has any problems or questions. [ ] Labs and Pending Lab Test: Microbiology 08/31/20 MRSA Screen - Final, Complete MRSA not isolated Home Meds Active Percocet 5-325 mg Tablet (Oxycodone HCl/Acetaminophen) 1 Each Tablet 1 Tab PO Q4H PRN 40 Days Reported Stacey Allergy (Fexofenadine HCl) 180 Mg Tablet 180 Mg PO DAILY PRN Excedrin Migraine Caplet (Aspirin/Acetaminophen/Caffeine) 1 Each Tablet 2 Each PO Q6-8HR PRN Multivitamin 1 Each Tablet 1 Each PO DAILY Ropinirole HCl 1 Mg Tablet 1 Ea PO HS Escitalopram Oxalate 10 Mg Tablet 10 Mg PO DAILY Lisinopril-Hctz 10-12.5 mg Tab (Lisinopril/Hydrochlorothiazide) 1 Each Tablet 1 Ea PO DAILY Xalatan (Latanoprost) 2.5 Ml Drops 1 Drop OU HS Estrogen-Methyltestos H.s. Tab (Estrogen,Mildred/Me-Testosterone) 1 Each Tablet 1 Ea PO DAILY Assessment/Pt Instructions Continue elevation and ice left ankle. Walker ambulation nonweightbearing on the left Ibuprofen 6-800 mg by mouth 3 times a day with food Percocet 5/325 one by mouth every 4 hours when necessary pain Aspirin 325 mg 1 by mouth daily 4 weeks Follow-up appointment on Wednesday 09/06 Discharge Physical Examination Vital Signs Vital Signs Date Time Temp Pulse Resp B/P (MAP) Pulse Ox O2 Delivery O2 Flow Rate FiO2 09/02/20 08:00 98 Room Air 0.00 09/02/20 07:30 36.6 89 20 134/65 (88) Allergies: Coded Allergies: latex (Verified Allergy, Unknown, 08/30/20) Discharge Summary Date of Admission Aug 30, 2020 at 20:53 Date of Discharge PETEY VEGA MD Sep 02, 2020 09:20
--- NOTE | 2020-09-02 09:28 | Progress Note - Ortho ---
Progress Note Subjective Date of Exam 09/02/20 Chief Complaint POD#2 open reduction internal fixation trimalleolar fracture dislocation left ankle HPI/Events since last exam Mrs Nelson is 2 days postop open reduction internal fixation left ankle. Her pain is less but she notes increased pain after getting up the space with therapy. She continues with oral and IV pain medication. Than that she's having no problems. I spoke with therapy and they states she is doing well with walker ambulation nonweightbearing. Review of Systems Reviewed and no additions or changes Allergies: Coded Allergies: latex (Verified Allergy, Unknown, 08/30/20) Home Meds Active Scripts Oxycodone HCl/Acetaminophen (Percocet 5-325 mg Tablet) 1 Each Tablet, 1 TAB PO Q4H PRN for PAIN-MODERATE (5-7) for 40 Days, TAB Prov:PETEY VEGA MD 09/02/20 Reported Medications Fexofenadine HCl (Stacey Allergy) 180 Mg Tablet, 180 MG PO DAILY PRN for ALLERGY SYMPTOMS, TAB 08/31/20 Aspirin/Acetaminophen/Caffeine (Excedrin Migraine Caplet) 1 Each Tablet, 2 EACH PO Q6-8HR PRN for Headache, TAB 08/31/20 Multivitamin (Multivitamin) 1 Each Tablet, 1 EACH PO DAILY, TAB 08/31/20 Ropinirole HCl (Ropinirole HCl) 1 Mg Tablet, 1 EA PO HS, TAB 08/31/20 Escitalopram Oxalate (Escitalopram Oxalate) 10 Mg Tablet, 10 MG PO DAILY, TAB 08/31/20 Lisinopril/Hydrochlorothiazide (Lisinopril-Hctz 10-12.5 mg Tab) 1 Each Tablet, 1 EA PO DAILY, TAB 08/31/20 Latanoprost (Xalatan) 2.5 Ml Drops, 1 DROP OU HS, DROPS 08/31/20 Estrogen,Mildred/Me-Testosterone (Estrogen-Methyltestos H.s. Tab) 1 Each Tablet, 1 EA PO DAILY, TAB 08/31/20 Objective Exam Constitutional: [] HEENT: [] Neck: [] Cardiovascular: [] Respiratory: [] Gastrointestinal: [] Genitourinary: [] Skin: [] Back/Spine: [] Extremities: [Her splint is intact. She can move her toes and has normal sensation with good cap refill. No pain with motion of her toes] Neurologic: [] Psychiatric: [] Hematologic/lymphatic/immunologic: [] Vital Signs Vital Signs Date Time Temp Pulse Resp B/P (MAP) Pulse Ox O2 Delivery O2 Flow Rate FiO2 09/02/20 08:00 98 Room Air 0.00 09/02/20 07:30 36.6 89 20 134/65 (88) 98 Room Air 09/02/20 03:34 37.3 85 20 132/67 (88) 95 Room Air 09/02/20 00:00 37.2 84 20 131/62 (85) 93 Room Air 09/01/20 20:00 Room Air 09/01/20 20:00 37.1 89 20 148/67 (94) 98 Room Air 09/01/20 16:00 37.4 88 18 157/73 (101) 95 Room Air 0.00 09/01/20 12:00 37.2 90 18 138/64 (88) 96 Room Air 0.00 I & O 09/02/20 07:00 Intake Total 2920 ml Output Total 3650 ml Balance -730 ml Lab Results Microbiology 08/31/20 MRSA Screen - Final, Complete MRSA not isolated Assessment and Plan Assessment Doing well second postoperative day. Ready for discharge Problem List Unchanged Plan Discharge. Follow-up on Sunday. Prescription for Percocet 5/325. Continue with aspirin 325 mg once a day 4 weeks. Continue ice and elevation. Continue walker ambulation nonweightbearing on the left Final Diagonsis Trimalleolar fracture dislocation left ankle status post open reduction internal fixation Level of the visit: Level 3 PETEY VEGA MD Sep 02, 2020 09:28
--- NOTE | 2020-09-02 10:43 | Physical Therapy Daily Note ---
PT Daily Note-Current Subjective Patient requested to trial a knee scooter. Patient reports patient is under control today. Pain Numeric Pain Scale: 5-Moderate Pain Location: Left Location Body Site: Ankle Pain Description: Acute Mental Status Patient Orientation: Normal For Age Transfers SCALE: Activities may be completed with or without assistive devices. 6-Fkcsbxiqnm-jhokbgh completes the activity by him/herself with no assistance from a helper. 5-Set-up or Clean-up Assistance-helper sets up or cleans up; patient completes activity. [place] assists only prior to or following the activity. 4-Supervision or Touching Assistance-helper provides verbal cues and/or touching/steadying and/or contact guard assistance as patient completes activity. Assistance may be provided throughout the activity or intermittently. 3-Partial/Moderate Assistance-helper does LESS THAN HALF the effort. [place] lifts, holds or supports trunk or limbs, but provides less than half the effort. 2-Substantial/Maximal Assistance-helper does MORE THAN HALF the effort. [place] lifts or holds trunk or limbs and provides more than half the effort. 7-Gumokxnwk-cnkkgs does ALL the effort. Patient does none of the effort to complete the activity. Or, the assistance of 2 or more helpers is required for the patient to complete the activity. If activity was not attempted, code reason: 7-Patient Refused. 9-Not Applicable-not attempted and the patient did not perform the activity before the current illness, exacerbation or injury. 10-Not Attempted due to Environmental Limitations-(lack of equipment, weather restraints, etc.). 88-Not Attempted due to Medical Conditions or Safety Concerns. Lying to Sitting/Side of Bed(Q: 6 Sit to Stand (QC): 5 Chair/Dzh-yo-Ktixa Xfer(QC): 5 Weight Bearing Right Lower Extremity: Right Full Weight Bearing Left Lower Extremity: Left Non Weight Bearing Gait Training Does the Patient Walk?: Yes Distance: 75'x 1 FWW/ 25' x 1 knee scooter Walk 10 feet (QC): 5 Walk 50 ft with 2 Turns(QC): 5 Walk 150 ft (QC): 88 Gait Assistive Device: FWW NWB left LE compliance (attempted to use knee scooter with increase c/o left knee pressure. FWW to be utilized in home) Assessment Patient tolerated treatment well and is up in recliner with needs met. Patient to be dismissed on this date to home with family. PT Correction Goals Correction Goals PT Correction Goals Time Frame: Sep 08, 2020 Roll Left & Right (QC): 6 Sit to Lying (QC): 6 Lying-Sitting on Side/Bed(QC): 6 Sit to Stand (QC): 6 Chair/Obg-go-Alxyd Xfer(QC): 6 Walk 10 feet (QC): 6 Walk 50ft with 2 Turns (QC): 6 PT Plan Treatment/Plan Treatment Plan: Discontinue PT Treatment Plan: Education, Functional Activity Tyrel, Functional Strength, Gait, Safety, Therapeutic Exercise, Transfers Treatment Duration: Sep 08, 2020 Frequency: 11 times per week Estimated Hrs Per Day: .25 hour per day Patient and/or Family Agrees t: Yes Time/GCodes Time In: 830 Time Out: 853 Total Billed Treatment Time: 23 Total Billed Treatment 1 visit GT x 2 23 min TRUDY SHAH PT Sep 02, 2020 10:43
[2020-09-02 11:58] VITALS: BP 132/69
== END 2020-09-02 12:45 | disposition home or self-care (01) ==
LOC: ER 19:28 → 4TH 20:53 → UNDOADMOB 20:53 → 4TH 20:53 → SDC 20:53 → 4TH 09-01 14:29 → UNDODISOB 09-02 12:45 → SDC 09-02 12:45
PROVIDERS: ATTEND Orthopaedic Surgery
DX: S82.852A Displaced trimalleolar fracture of left lower leg, initial encounter for closed fracture (principal); I10 Essential (primary) hypertension; F41.9 Anxiety disorder, unspecified; E66.01 Morbid (severe) obesity due to excess calories; Z68.42 Body mass index [BMI] 45.0-49.9, adult; Z79.899 Other long term (current) drug therapy; Z79.82 Long term (current) use of aspirin; Z91.040 Latex allergy status; Z20.822 Contact with and (suspected) exposure to COVID-19
CPT/HCPCS: 27822; 29505; 71045; 72100; 72170; 73590; 73610; 76000; 80048; 85025; 87081; 93005; 93041; 94664; 97116 ×2; 97161; 99285; C1713 ×7; U0002; 36415; 87635

== ENCOUNTER → 2020-09-06 | Outpatient (CLI) | payer BC ==
[~2020-09-06] MED LIST: ASPI-789 PO; ESCI-2 PO; FEXO180T84 PO; LATA2.5D19 OU; LISI1TAB29 PO; MULT-1136 PO; OXYC1TAB87 PO; ROPI1TAB PO; SYNTEST.HS PO
== END ==
LOC: ORTHO 08:56
PROVIDERS: ATTEND Orthopaedic Surgery
DX: S82.852A Displaced trimalleolar fracture of left lower leg, initial encounter for closed fracture (principal); X58.XXXA Exposure to other specified factors, initial encounter
CPT/HCPCS: 29405

== ENCOUNTER → 2020-09-15 | Outpatient (CLI) | payer BC ==
--- NOTE | 2020-09-15 09:20 | Diagnostic Imaging Report ---
INDICATION: Left ankle fractures, postop. TECHNIQUE/COMPARISON: AP, oblique, and lateral views of the left ankle were obtained at 8:44 AM and compared to 08/30/2020. FINDINGS: There are postop changes. The comminuted distal fibular fracture is in good alignment with plate and screws in place. There are 2 screws fusing the medial malleolar fracture of the distal tibia in good alignment. There are 2 screws fusing the distal tibia and fibula. The alignment of the ankle joint appears anatomic. There is no unexpected foreign body post surgery. IMPRESSION: Well aligned left ankle fractures status post ORIF. No unexpected foreign body post surgery. Dictated by: Dictated on workstation # [id number]
== END ==
LOC: ORTHO 08:24
PROVIDERS: ATTEND Orthopaedic Surgery
DX: S82.852D Displaced trimalleolar fracture of left lower leg, subsequent encounter for closed fracture with routine healing (principal); Z98.890 Other specified postprocedural states; Z96.698 Presence of other orthopedic joint implants; X58.XXXD Exposure to other specified factors, subsequent encounter
CPT/HCPCS: 29405; 73610

== ENCOUNTER → 2020-09-29 | Outpatient (CLI) | payer BC ==
--- NOTE | 2020-09-29 09:09 | Diagnostic Imaging Report ---
HISTORY: Followup left ankle fracture. COMPARISON: 09/15/2020. TECHNIQUE: Three views of the left ankle. FINDINGS: There is internal fixation of the left fibular fracture with a lateral plate and multiple screws including two syndesmotic screws. There is internal fixation of the medial malleolus. The alignment appears stable since the prior exam and there appear to be healing changes present. The posterior malleolar fragment is unchanged in position. No hardware complication is seen. The alignment of the ankle mortise appears normal. There is mild soft tissue swelling about the left ankle. There is calcaneal enthesopathy. IMPRESSION: Internal fixation of the medial and lateral malleolar fractures in stable alignment and without hardware complication seen. Dictated by: Dictated on workstation # [id number]
== END ==
LOC: ORTHO 08:33
PROVIDERS: ATTEND Orthopaedic Surgery
DX: S82.852D Displaced trimalleolar fracture of left lower leg, subsequent encounter for closed fracture with routine healing (principal); X58.XXXD Exposure to other specified factors, subsequent encounter
CPT/HCPCS: 73610

== ENCOUNTER 2020-10-09 12:04 | Emergency (ER) | payer BC ==
[~2020-10-09] VITALS: Ht 162 cm; Wt 121.1 kg
--- NOTE | 2020-10-09 12:20 | ED Lower Extremity ---
General Chief Complaint: Lower Extremity Stated Complaint: POST OP LEFT LEG POSS INFECTION Source: patient Exam Limitations: no limitations History of Present Illness Date Seen by Provider: Oct 09, 2020 Time Seen by Provider: 12:10 Initial Comments To ER by private vehicle with reports of possible infection in her left leg. On 08/30/2020 she sustained a closed trimalleolar ankle fracture/dislocation on the left. She underwent open reduction internal fixation with Dr. Vega here on 08/31. She has been doing very well she states until yesterday when she developed general fatigue, fever up to 103. She awakened this morning to notice development of redness around the anterior part of the ankle and some puslike d rainage from the inferior aspect of the lateral incision. 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 She does report nausea despite nothing to eat yet today. Onset: yesterday Severity: moderate Pain/Injury Location: left leg Method of Injury: fell Modifying Factors: Worse With Movement Allergies and Home Medications Allergies Coded Allergies: latex (Verified Allergy, Unknown, 08/30/20) Home Medications Aspirin/Acetaminophen/Caffeine 1 Each Tablet, 2 EACH PO Q6-8HR PRN for Headache, (Reported) Escitalopram Oxalate 10 Mg Tablet, 10 MG PO DAILY, (Reported) Estrogen,Mildred/Me-Testosterone 1 Each Tablet, 1 EA PO DAILY, (Reported) Fexofenadine HCl 180 Mg Tablet, 180 MG PO DAILY PRN for ALLERGY SYMPTOMS, (Reported) Lisinopril/Hydrochlorothiazide 1 Each Tablet, 1 EA PO DAILY, (Reported) Oxycodone HCl/Acetaminophen 1 Each Tablet, 1 TAB PO Q4H PRN for PAIN-MODERATE (5-7) Prescribed by: PETEY VEGA MD on 09/02/20 0907 Patient Home Medication List Home Medication List Reviewed: Yes Review of Systems Constitutional: see HPI, chills, fever, malaise, weakness EENTM: see HPI Respiratory: no symptoms reported Cardiovascular: no symptoms reported Genitourinary: no symptoms reported Musculoskeletal: see HPI Skin: no symptoms reported Psychiatric/Neurological: No Symptoms Reported Past Wldorjp-Nueytj-Iqhcmr Hx Patient Social History Recent Hopitalizations: No Immunizations Up To Date Date of Influenza Vaccine: Jul 30, 2020 Seasonal Allergies Seasonal Allergies: No Past Medical History Surgeries: Yes Gallbladder, Hysterectomy Respiratory: No Cardiac: Yes Hypertension Neurological: No Genitourinary: No Gastrointestinal: No Musculoskeletal: No Endocrine: No HEENT: No Cancer: No Psychosocial: No Integumentary: No Blood Disorders: No Physical Exam Vital Signs Vital Signs - First Documented 10/09/20 12:09 Temp 36.8 Pulse 89 Resp 18 B/P (MAP) 136/77 (96) Pulse Ox 98 O2 Delivery Room Air Capillary Refill : Height, Weight, BMI Height: '" Weight: lbs. oz. kg; 48.60 BMI Method: General Appearance: WD/WN, no apparent distress Neck: non-tender, full range of motion Cardiovascular: regular rate, rhythm, no murmur Respiratory: no respiratory distress, no accessory muscle use Gastrointestinal: normal bowel sounds, non tender, soft Hips: bilateral hip non-tender, bilateral hip normal inspection, bilateral hip normal range of motion Legs: bilateral leg non-tender, bilateral leg normal inspection, bilateral leg normal range of motion Knees: bilateral knee non-tender, bilateral knee normal inspection, bilateral knee normal range of motion Ankles: left ankle other (Erythema to the anterior aspect of the ankle. The medial incision looks okay. The inferior aspect of the lateral incision has a small area that I am able to squeeze around and expressed a fairly significant amount of purulent material out of. Culture of this material was collected and sent to lab.) Feet: bilateral foot non-tender, bilateral foot normal inspection Neurologic/Psychiatric: alert, normal mood/affect, oriented x 3 Skin: normal color, warm/dry Procedures/Interventions Patient Education: Explained Benefits, Explained Risks, Pt. Ack. Understanding Breath Sounds per Auscultation: Clear Heart Sounds per Auscultation: Regular Airway Exam: Mouth opens >2 fingers, Neck Full Range of Motion, Visulation of Uvula Sedation Adminstration Time: 1955 Re-examination Time: 2014 Progress/Results/Core Measures Results/Orders Lab Results Laboratory Tests Test 10/09/20 12:23 Range/Units White Blood Count 23.2 H 4.3-11.0 10^3/uL Red Blood Count 4.65 3.80-5.11 10^6/uL Hemoglobin 13.7 11.5-16.0 g/dL Hematocrit 41 35-52 % Mean Corpuscular Volume 89 80-99 fL Mean Corpuscular Hemoglobin 30 25-34 pg Mean Corpuscular Hemoglobin Concent 33 32-36 g/dL Red Cell Distribution Width 12.4 10.0-14.5 % Platelet Count 339 130-400 10^3/uL Mean Platelet Volume 9.6 9.0-12.2 fL Immature Granulocyte % (Auto) 1 % Neutrophils (%) (Auto) 82 H 42-75 % Lymphocytes (%) (Auto) 10 L 12-44 % Monocytes (%) (Auto) 6 0-12 % Eosinophils (%) (Auto) 1 0-10 % Basophils (%) (Auto) 0 0-10 % Neutrophils # (Auto) 19.1 H 1.8-7.8 10^3/uL Lymphocytes # (Auto) 2.3 1.0-4.0 10^3/uL Monocytes # (Auto) 1.4 H 0.0-1.0 10^3/uL Eosinophils # (Auto) 0.2 0.0-0.3 10^3/uL Basophils # (Auto) 0.1 0.0-0.1 10^3/uL Immature Granulocyte # (Auto) 0.1 0.0-0.1 10^3/uL Neutrophils % (Manual) 79 % Lymphocytes % (Manual) 12 % Monocytes % (Manual) 5 % Eosinophils % (Manual) 1 % Band Neutrophils 3 % Toxic Granulation 1+ Blood Morphology Comment NORMAL Sodium Level 135 135-145 MMOL/L Potassium Level 3.4 L 3.6-5.0 MMOL/L Chloride Level 100 98-107 MMOL/L Carbon Dioxide Level 23 21-32 MMOL/L Anion Gap 12 5-14 MMOL/L Blood Urea Nitrogen 11 7-18 MG/DL Creatinine 0.79 0.60-1.30 MG/DL Estimat Glomerular Filtration Rate > 60 BUN/Creatinine Ratio 14 Glucose Level 118 H 70-105 MG/DL Lactic Acid Level 2.25 *H 0.50-2.00 MMOL/L Calcium Level 9.5 8.5-10.1 MG/DL Corrected Calcium 9.2 8.5-10.1 MG/DL Total Bilirubin 1.0 0.1-1.0 MG/DL Aspartate Amino Transf (AST/SGOT) 18 5-34 U/L Alanine Aminotransferase (ALT/SGPT) 29 0-55 U/L Alkaline Phosphatase 82 40-136 U/L C-Reactive Protein High Sensitivity 17.78 H 0.00-0.50 MG/DL Total Protein 8.0 6.4-8.2 GM/DL Albumin 4.4 3.2-4.5 GM/DL My Orders Orders - ANANTH CUEVAS APRN Cbc With Automated Diff (10/09/20 12:21) Comprehensive Metabolic Panel (10/09/20 12:21) Ed Iv/Invasive Line Start (10/09/20 12:21) Blood Culture (10/09/20 12:21) Lactic Acid Analyzer (10/09/20 12:21) Hs C Reactive Protein (10/09/20 12:21) Erythrocyte Sedimentation Rate (10/09/20 12:21) Ankle, Left, 3 Views (10/09/20 12:21) Wound Culture (10/09/20 12:21) Ed Iv/Invasive Line Start (10/09/20 12:21) Ondansetron Injection (Zofran Injectio (10/09/20 12:30) Ns Iv 1000 Ml (Sodium Chloride 0.9%) (10/09/20 12:30) Ceftriaxone For Iv Use (Rocephin For I (10/09/20 12:30) Vancomycin Injection (Vancomycin Injecti (10/09/20 12:30) Manual Differential (10/09/20 12:23) Vancomycin Injection (Vancomycin Injecti (10/09/20 13:00) Medications Given in ED Current Medications Medications Dose Ordered Sig/Patricia Route Start Time Stop Time Status Last Admin Dose Admin Ceftriaxone Sodium 1000 mg/ Sterile Water 10 ml @ 200 mls/hr ONCE ONCE IV 10/09/20 12:30 10/09/20 12:32 DC 10/09/20 12:37 200 MLS/HR Ondansetron HCl 8 mg ONCE ONCE IVP 10/09/20 12:30 10/09/20 12:31 DC 10/09/20 12:34 8 MG Vital Signs/I&O 10/09/20 12:09 Temp 36.8 Pulse 89 Resp 18 B/P (MAP) 136/77 (96) Pulse Ox 98 O2 Delivery Room Air Diagnostic Imaging Diagonstic Imaging: Xray Comments NAME: LOULOU AGARWAL MED REC#: [id number] PT STATUS: REG ER : 1970 PHYSICIAN: ANANTH CUEVAS APRN ADMIT DATE: 10/09/20/ER Draft Date of Exam:10/09/20 ANKLE, LEFT, 3 VIEWS INDICATION: Left ankle infection, drainage from surgery of left ankle on 08/31/2020. COMPARISON STUDY: Left ankle from 09/29/2020. FINDINGS: 3 views of the left ankle demonstrate internal fixation plate and screws across the fibula and 2 screws across the medial malleolus. Medial malleolus fracture is well-healed. There is a small fracture off of the plafond. Fibular fracture is incompletely healed. There is some osteopenia in the distal femur. No periosteal reaction is present. IMPRESSION: 1. Internal fixated bimalleolar fracture with incomplete healing of the fibula. 2. There is some focal osteopenia of the distal fibula, osteomyelitis cannot be excluded. 3. Incidental note is made of a small plafond fracture. Dictated on workstation # [id number] Dict: 10/09/20 1304 Trans: 10/09/20 1307 CV [id number] Interpreted by: MONI EVERETT MD Electronically signed by: Departure Communication (Admissions) 1412-any orthopedic coverage on the weekend. Spoke with Dr. Blanco here on-call for hospitalist. Requests transfer to facility with orthopedics available this weekend. I have spoken with [facility] transfer wayne who spoke with Dr. Wallace regional maintenance manager for orthopedics this weekend. He accepted the patient for transfer. Requested that the patient go to the emergency room. Dr. Clemente from the emergency department also accepted the patient. She has received Rocephin 1 g IV here, vancomycin 1.75 g IV is currently infusing. Reports mi nimal pain. Blood cultures and wound culture are pending. Impression Primary Impression: Postoperative wound infection Disposition: XFER SHT-TRM HOSP Condition: Stable Transfer Transfer Reason: Exceeds level of care Time Spoke to Accepting Phy: 14:18 Departure-Patient Inst. Referrals: NO,LOCAL PHYSICIAN (PCP/Family) Primary Care Physician ANANTH CUEVAS APRN Oct 09, 2020 12:20
[2020-10-09] MEDS ORDERED: ONDANSETRON 4 MG/2 ML (SDV) Z0FRAN IVP ONE (12:30)
[2020-10-09] MEDS ORDERED: cefTRIAXone FOR IV USE 1,000 MG in WATER (STERILE) FOR INJECTION 10 ML IV ONE (12:30)
[2020-10-09] MEDS ORDERED: NS IV 1000 ML 1,000 ML IV SCH (12:30)
[2020-10-09] MEDS ORDERED: VANCOMYCIN INJECTION 1,750 MG in NS IV 500 ML 500 ML IV SCH (12:30)
[2020-10-09 12:43] LABS: BASOPHILS # (AUTO) 0.1 10^3/uL (0.0-0.1); BASOPHILS % (AUTO) 0 % (0-10); EOSINOPHILS # (AUTO) 0.2 10^3/uL (0.0-0.3); EOSINOPHILS % (AUTO) 1 % (0-10); HEMATOCRIT 41 % (35-52); HEMOGLOBIN 13.7 g/dL (11.5-16.0); LYMPHOCYTES # (AUTO) 2.3 10^3/uL (1.0-4.0); LYMPHOCYTES % (AUTO) 10 % (12-44); MEAN CORPUSCULAR HEMOGLOBIN 30 pg (25-34); MEAN CORPUSCULAR HGB CONC 33 g/dL (32-36); MEAN CORPUSCULAR VOLUME 89 fL (80-99); MEAN PLATELET VOLUME 9.6 fL (9.0-12.2); MONOCYTES # (AUTO) 1.4 10^3/uL (0.0-1.0); MONOCYTES % (AUTO) 6 % (0-12); NEUTROPHILS # (AUTO) 19.1 10^3/uL (1.8-7.8); NEUTROPHILS % (AUTO) 82 % (42-75); PLATELET COUNT 339 10^3/uL (130-400); WHITE BLOOD COUNT 23.2 10^3/uL (4.3-11.0)
[2020-10-09 12:56] LABS: ALBUMIN 4.4 GM/DL (3.2-4.5); CHLORIDE 100 MMOL/L (98-107); POTASSIUM 3.4 MMOL/L (3.6-5.0); SODIUM 135 MMOL/L (135-145)
[2020-10-09 12:57] LABS: CALCIUM 9.5 MG/DL (8.5-10.1)
[2020-10-09 12:58] LABS: GLUCOSE 118 MG/DL (70-105)
[2020-10-09 12:59] LABS: BAND NEUTROPHILS 3 %; EOSINOPHILS % (MANUAL) 1 %; LYMPHOCYTES % (MANUAL) 12 %; MONOCYTES % (MANUAL) 5 %; NEUTROPHILS % (MANUAL) 79 %
[2020-10-09 13:00] LABS: CARBON DIOXIDE 23 MMOL/L (21-32); RBC MORPH NORMAL; TOXIC GRANULATION/VACUOLAZATIO 1+
[2020-10-09] MEDS ORDERED: VANCOMYCIN 2000 MG/NS 500 ML IVPB IV NR ×2 (13:00)
[2020-10-09 13:02] LABS: ALKALINE PHOSPHATASE 82 U/L (40-136); CREATININE SERUM 0.79 MG/DL (0.60-1.30); GFR ESTIMATED > 60
[2020-10-09 13:03] LABS: BUN/CREATININE RATIO 14
[2020-10-09 13:05] LABS: ALANINE AMINOTRANSFERASE 29 U/L (0-55)
--- NOTE | 2020-10-09 13:08 | Diagnostic Imaging Report ---
INDICATION: Left ankle infection, drainage from surgery of left ankle on 08/31/2020. COMPARISON STUDY: Left ankle from 09/29/2020. FINDINGS: 3 views of the left ankle demonstrate internal fixation plate and screws across the fibula and 2 screws across the medial malleolus. Medial malleolus fracture is well-healed. There is a small fracture off of the plafond. Fibular fracture is incompletely healed. There is some osteopenia in the distal femur. No periosteal reaction is present. IMPRESSION: 1. Internal fixated bimalleolar fracture with incomplete healing of the fibula. 2. There is some focal osteopenia of the distal fibula, osteomyelitis cannot be excluded. 3. Incidental note is made of a small plafond fracture. Dictated by: Dictated on workstation # [id number]
[2020-10-09 14:34] LABS: ERYTHROCYTE SEDIMENTATION RATE 9 MM/HR (0-30)
[2020-10-09 15:28] VITALS: BP 135/76
== END 2020-10-09 15:21 | disposition short-term general hospital (02) ==
LOC: EDUNIT# 12:04 → ER 12:08
DX: T81.40XA Infection following a procedure, unspecified, initial encounter (principal); I10 Essential (primary) hypertension; Z91.040 Latex allergy status; Z79.82 Long term (current) use of aspirin
CPT/HCPCS: 36415; 73610; 80053; 83605; 85007; 85027; 85652; 86141; 87040; 87070; 87205

== ENCOUNTER → 2020-10-25 | Outpatient (CLI) | payer BC ==
[2020-10-25 14:17] LABS: HEMATOCRIT 34 % (35-52); HEMOGLOBIN 11.2 G/DL (11.5-16.0); MEAN CORPUSCULAR HEMOGLOBIN 30 PG (25-34); MEAN CORPUSCULAR HGB CONC 33 G/DL (32-36); MEAN CORPUSCULAR VOLUME 90 FL (80-99); WHITE BLOOD COUNT 8.2 10^3/uL (4.3-11.0)
[2020-10-25 14:18] LABS: BASOPHILS % (AUTO) 1 % (0-10); EOSINOPHILS % (AUTO) 7 % (0-10); LYMPHOCYTES % (AUTO) 25 % (12-44); MONOCYTES % (AUTO) 10 % (0-12); NEUTROPHILS % (AUTO) 57 % (42-75); PLATELET COUNT 432 10^3/uL (130-400)
[2020-10-25 14:19] LABS: BASOPHILS # (AUTO) 0.1 10^3/uL (0.0-0.1); EOSINOPHILS # (AUTO) 0.6 10^3/uL (0.0-0.3); MONOCYTES # (AUTO) 0.8 X 10^3 (0.0-1.0); NEUTROPHILS # (AUTO) 4.6 X 10^3 (1.8-7.8)
[2020-10-25 14:37] LABS: CHLORIDE 100 MMOL/L (98-107); POTASSIUM 4.1 MMOL/L (3.6-5.0); SODIUM 137 MMOL/L (135-145)
[2020-10-25 14:38] LABS: ALANINE AMINOTRANSFERASE 6 U/L (0-55); ALBUMIN 4.2 GM/DL (3.2-4.5); ALKALINE PHOSPHATASE 85 U/L (40-136); BILIRUBIN,TOTAL 0.2 MG/DL (0.1-1.0); BUN/CREATININE RATIO 22; CALCIUM 9.6 MG/DL (8.5-10.1); CARBON DIOXIDE 25 MMOL/L (21-32); CREATININE SERUM 0.65 MG/DL (0.60-1.30); GFR ESTIMATED > 60; GLUCOSE 94 MG/DL (70-105); TOTAL PROTEIN 7.5 GM/DL (6.4-8.2)
[2020-10-25 15:18] LABS: ERYTHROCYTE SEDIMENTATION RATE 42 MM/HR (0-30)
[2020-10-26 15:15] LABS: CREATINE KINASE 37 U/L (29-168)
== END ==
LOC: LAB FS 13:56
PROVIDERS: ATTEND Internal Medicine Infectious Disease
DX: Z01.89 Encounter for other specified special examinations (principal)
CPT/HCPCS: 36415; 80053; 82550; 85025; 85652; 86141

== ENCOUNTER → 2020-11-02 | Outpatient (CLI) | payer BC ==
[2020-11-02 13:37] LABS: HEMATOCRIT 36 % (35-52); MEAN CORPUSCULAR HEMOGLOBIN 29 PG (25-34); MEAN CORPUSCULAR HGB CONC 33 G/DL (32-36); MEAN CORPUSCULAR VOLUME 88 FL (80-99); WHITE BLOOD COUNT 7.4 10^3/uL (4.3-11.0)
[2020-11-02 13:38] LABS: BASOPHILS # (AUTO) 0.1 10^3/uL (0.0-0.1); BASOPHILS % (AUTO) 1 % (0-10); EOSINOPHILS # (AUTO) 0.9 10^3/uL (0.0-0.3); EOSINOPHILS % (AUTO) 12 % (0-10); ERYTHROCYTE SEDIMENTATION RATE 36 MM/HR (0-30); LYMPHOCYTES # (AUTO) 1.9 X 10^3 (1.0-4.0); LYMPHOCYTES % (AUTO) 25 % (12-44); MEAN PLATELET VOLUME 9.4 FL (7.4-10.4); MONOCYTES # (AUTO) 0.6 X 10^3 (0.0-1.0); MONOCYTES % (AUTO) 8 % (0-12); NEUTROPHILS % (AUTO) 54 % (42-75); PLATELET COUNT 404 10^3/uL (130-400)
[2020-11-02 13:39] LABS: ALANINE AMINOTRANSFERASE 9 U/L (0-55); ALBUMIN 4.3 GM/DL (3.2-4.5); ALKALINE PHOSPHATASE 83 U/L (40-136); BILIRUBIN,TOTAL 0.2 MG/DL (0.1-1.0); BUN/CREATININE RATIO 24; CALCIUM 9.7 MG/DL (8.5-10.1); CARBON DIOXIDE 25 MMOL/L (21-32); CHLORIDE 101 MMOL/L (98-107); CREATININE SERUM 0.58 MG/DL (0.60-1.30); GFR ESTIMATED > 60; GLUCOSE 120 MG/DL (70-105); SODIUM 138 MMOL/L (135-145); TOTAL PROTEIN 7.8 GM/DL (6.4-8.2)
== END ==
LOC: LAB FS 13:13
PROVIDERS: ATTEND Internal Medicine Infectious Disease
DX: Z45.2 Encounter for adjustment and management of vascular access device (principal); A41.01 Sepsis due to Methicillin susceptible Staphylococcus aureus; A41.52 Sepsis due to Pseudomonas; L03.116 Cellulitis of left lower limb; S82.852D Displaced trimalleolar fracture of left lower leg, subsequent encounter for closed fracture with routine healing; Z79.2 Long term (current) use of antibiotics
CPT/HCPCS: 36415; 80053; 85652; 86141

== ENCOUNTER → 2020-11-08 | Outpatient (CLI) | payer BC ==
[2020-11-08 11:26] LABS: HEMATOCRIT 35 % (35-52); HEMOGLOBIN 11.7 G/DL (11.5-16.0); LYMPHOCYTES % (AUTO) 29 % (12-44); MEAN CORPUSCULAR HEMOGLOBIN 29 PG (25-34); MEAN CORPUSCULAR HGB CONC 33 G/DL (32-36); MEAN CORPUSCULAR VOLUME 89 FL (80-99); MEAN PLATELET VOLUME 9.8 FL (7.4-10.4); NEUTROPHILS % (AUTO) 48 % (42-75); PLATELET COUNT 312 10^3/uL (130-400); WHITE BLOOD COUNT 6.6 10^3/uL (4.3-11.0)
[2020-11-08 11:27] LABS: BASOPHILS # (AUTO) 0.1 10^3/uL (0.0-0.1); BASOPHILS % (AUTO) 1 % (0-10); EOSINOPHILS % (AUTO) 14 % (0-10); LYMPHOCYTES # (AUTO) 1.9 X 10^3 (1.0-4.0); MONOCYTES # (AUTO) 0.5 X 10^3 (0.0-1.0); MONOCYTES % (AUTO) 7 % (0-12); NEUTROPHILS # (AUTO) 3.1 X 10^3 (1.8-7.8)
[2020-11-08 11:42] LABS: ALANINE AMINOTRANSFERASE 7 U/L (0-55); ALKALINE PHOSPHATASE 79 U/L (40-136); BILIRUBIN,TOTAL 0.3 MG/DL (0.1-1.0); BUN/CREATININE RATIO 21; CALCIUM 9.7 MG/DL (8.5-10.1); CARBON DIOXIDE 24 MMOL/L (21-32); CHLORIDE 102 MMOL/L (98-107); CREATININE SERUM 0.67 MG/DL (0.60-1.30); GFR ESTIMATED > 60; GLUCOSE 86 MG/DL (70-105); POTASSIUM 4.1 MMOL/L (3.6-5.0); SODIUM 140 MMOL/L (135-145); TOTAL PROTEIN 7.6 GM/DL (6.4-8.2)
[2020-11-08 11:43] LABS: ALBUMIN 4.3 GM/DL (3.2-4.5)
[2020-11-08 12:16] LABS: BAND NEUTROPHILS 0 %; BASOPHILS % (MANUAL) 1 %; EOSINOPHILS % (MANUAL) 18 %; ERYTHROCYTE SEDIMENTATION RATE 27 MM/HR (0-30); LYMPHOCYTES % (MANUAL) 27 %; MONOCYTES % (MANUAL) 11 %; NEUTROPHILS % (MANUAL) 43 %
== END ==
LOC: IHC 10:54
PROVIDERS: ATTEND Internal Medicine Infectious Disease
DX: T81.49XA Infection following a procedure, other surgical site, initial encounter (principal)
CPT/HCPCS: 80053; 85007; 85027; 85652; 86141

== ENCOUNTER → 2020-11-15 | Outpatient (CLI) | payer BC ==
[2020-11-15 13:49] LABS: HEMATOCRIT 32 % (35-52); HEMOGLOBIN 10.5 G/DL (11.5-16.0); MEAN CORPUSCULAR HEMOGLOBIN 29 PG (25-34); MEAN CORPUSCULAR HGB CONC 33 G/DL (32-36); MEAN CORPUSCULAR VOLUME 88 FL (80-99); WHITE BLOOD COUNT 7.5 10^3/uL (4.3-11.0)
[2020-11-15 13:50] LABS: BASOPHILS # (AUTO) 0.1 10^3/uL (0.0-0.1); BASOPHILS % (AUTO) 1 % (0-10); EOSINOPHILS # (AUTO) 0.8 10^3/uL (0.0-0.3); EOSINOPHILS % (AUTO) 10 % (0-10); LYMPHOCYTES # (AUTO) 2.4 X 10^3 (1.0-4.0); LYMPHOCYTES % (AUTO) 32 % (12-44); MEAN PLATELET VOLUME 9.8 FL (7.4-10.4); MONOCYTES # (AUTO) 0.7 X 10^3 (0.0-1.0); MONOCYTES % (AUTO) 9 % (0-12); NEUTROPHILS # (AUTO) 3.6 X 10^3 (1.8-7.8); NEUTROPHILS % (AUTO) 48 % (42-75); PLATELET COUNT 313 10^3/uL (130-400)
[2020-11-15 14:13] LABS: ALANINE AMINOTRANSFERASE 5 U/L (0-55); ALBUMIN 3.7 GM/DL (3.2-4.5); ALKALINE PHOSPHATASE 68 U/L (40-136); BILIRUBIN,TOTAL 0.2 MG/DL (0.1-1.0); BUN/CREATININE RATIO 21; CALCIUM 9.3 MG/DL (8.5-10.1); CARBON DIOXIDE 29 MMOL/L (21-32); CHLORIDE 100 MMOL/L (98-107); CREATININE SERUM 0.66 MG/DL (0.60-1.30); GFR ESTIMATED > 60; GLUCOSE 101 MG/DL (70-105); POTASSIUM 3.7 MMOL/L (3.6-5.0); SODIUM 139 MMOL/L (135-145); TOTAL PROTEIN 6.7 GM/DL (6.4-8.2)
[2020-11-15 14:15] LABS: ERYTHROCYTE SEDIMENTATION RATE 27 MM/HR (0-30)
== END ==
LOC: LAB FS 13:10
PROVIDERS: ATTEND Internal Medicine Infectious Disease
DX: T81.49XA Infection following a procedure, other surgical site, initial encounter (principal); A41.01 Sepsis due to Methicillin susceptible Staphylococcus aureus
CPT/HCPCS: 36415; 80053; 85025; 85652; 86141

== ENCOUNTER → 2020-11-22 | Outpatient (CLI) | payer BC ==
[2020-11-22 21:26] LABS: ALANINE AMINOTRANSFERASE 6 U/L (0-55); ALKALINE PHOSPHATASE 73 U/L (40-136); BILIRUBIN,TOTAL 0.2 MG/DL (0.1-1.0); BUN/CREATININE RATIO 23; CALCIUM 9.7 MG/DL (8.5-10.1); CARBON DIOXIDE 27 MMOL/L (21-32); CHLORIDE 101 MMOL/L (98-107); GFR ESTIMATED > 60; GLUCOSE 82 MG/DL (70-105); POTASSIUM 3.7 MMOL/L (3.6-5.0); SODIUM 139 MMOL/L (135-145); TOTAL PROTEIN 6.9 GM/DL (6.4-8.2)
[2020-11-22 21:27] LABS: HEMATOCRIT 33 % (35-52); HEMOGLOBIN 10.7 G/DL (11.5-16.0); MEAN CORPUSCULAR HEMOGLOBIN 29 PG (25-34); MEAN CORPUSCULAR HGB CONC 32 G/DL (32-36); MEAN CORPUSCULAR VOLUME 91 FL (80-99); PLATELET COUNT 310 10^3/uL (130-400)
[2020-11-22 21:28] LABS: BASOPHILS % (AUTO) 1 % (0-10); EOSINOPHILS # (AUTO) 0.7 10^3/uL (0.0-0.3); EOSINOPHILS % (AUTO) 12 % (0-10); ERYTHROCYTE SEDIMENTATION RATE 21 MM/HR (0-30); LYMPHOCYTES # (AUTO) 1.9 X 10^3 (1.0-4.0); LYMPHOCYTES % (AUTO) 31 % (12-44); MONOCYTES # (AUTO) 0.6 X 10^3 (0.0-1.0); MONOCYTES % (AUTO) 10 % (0-12); NEUTROPHILS # (AUTO) 2.7 X 10^3 (1.8-7.8); NEUTROPHILS % (AUTO) 45 % (42-75)
== END ==
LOC: LAB FS 18:45
PROVIDERS: ATTEND Internal Medicine Infectious Disease
DX: T81.49XA Infection following a procedure, other surgical site, initial encounter (principal); A41.01 Sepsis due to Methicillin susceptible Staphylococcus aureus
CPT/HCPCS: 36415; 80053; 85025; 85652; 86141